=== PATIENT | male | born 1995 | race Caucasian/White ===

== ENCOUNTER 2017-01-23 18:23 | Emergency (ER) | payer SELFPAY ==
[2017-01-23 19:49] LABS: Basophils % (Auto) 0.2 % (0.0-1.8); Hematocrit 43.1 % (35.5-45.6); Hemoglobin 14.4 gm/dl (11.8-15.2); Mean Corpuscular HGB Conc 34 % (32-34); Mean Corpuscular Hemoglobin 30 pg (28-32); Mean Corpuscular Volume 89 fl (84-94); Platelet Count 276 K/mm3 (140-440); Red Blood Count 4.87 M/mm3 (3.65-5.03); Red Cell Distribution Width 14.3 % (13.2-15.2); White Blood Count 11.8 K/mm3 (4.5-11.0)
[2017-01-23 19:59] LABS: Anion Gap 19 mmol/L; Blood Urea Nitrogen 18 mg/dL (9-20); Carbon Dioxide 27 mmol/L (22-30); Chloride 96.9 mmol/L (98-107); Glucose 111 mg/dL (75-100); Potassium 3.7 mmol/L (3.6-5.0); Sodium 139 mmol/L (137-145)
[2017-01-23 23:11] VITALS: BP 114/65
--- NOTE | 2017-01-23 23:29 | Emergency Department Report ---
Vomiting/Diarrhea - [facility] Stated Complaint: VOMITING Time Seen by Provider: 01/23/17 23:12 Duration: Today Severity: moderate Nausea/Vomiting Severity: Moderate Diarrhea Severity: None Pain Location: Epigastric Pain Severity: Moderate Symptoms: No Recent Unusual Foods, No Recent Untreated Water, No Recent use of Antibiotics Other History: 21-year-old male comes in for complaint of nausea and vomiting that started about 7 AM this morning. Patient reports that he is probably vomited about 20 times. He still complains of nausea and diffuse abdominal pains. He reports he had last night for dinner was spicy [place]. He also complains of a headache. ED Review of Systems ROS: Stated complaint: VOMITING Other details as noted in HPI ED Past Medical Hx - Past Medical History Previous Medical History?: No - Surgical History Past Surgical History?: No - Social History Smoking Status: Never Smoker Substance Use Type: Other - Medications Home Medications: Home Medications Medication Instructions Recorded Confirmed Last Taken Type Ondansetron [Zofran ODT TAB] 4 mg PO Q8HR PRN #6 tab.rapdis 01/24/17 Unknown Rx Vomiting Diarrhea Exam - Exam General: Vital signs noted. No distress. Alert and acting appropriately. Neurologic: Alert and oriented, no deficits. Musculoskeletal: Unremarkable. ED Course Vital Signs 01/23/17 01/23/17 18:59 22:27 Temperature 98.1 F 98.5 F Pulse Rate 110 H 78 Respiratory 18 16 Rate Blood Pressure 121/70 Blood Pressure 114/65 [Right] O2 Sat by Pulse 97 97 Oximetry - Reevaluation(s) Reevaluation #1: 01/24/17 01:59 Patient reports he is able to drink without vomiting and stomach pain has improved and no longer nauseated. ED Medical Decision Making - Lab Data Result diagrams: 01/23/17 19:26 01/23/17 19:26 - Medical Decision Making Patient has been evaluated by this provider fast track. Discussed with patient that we will give him Zofran and start a by mouth trial. We would discharge patient with instructions on on a [place] diet. Verbalized understanding Critical care attestation.: If time is entered above; I have spent that time in minutes in the direct care of this critically ill patient, excluding procedure time. ED Disposition Clinical Impression: Nausea & vomiting Qualifiers: Vomiting type: unspecified Vomiting Intractability: unspecified Qualified Code( s): R11.2 - Nausea with vomiting, unspecified Disposition: DISCHARGED TO HOME OR SELFCARE Is pt being admited?: No Does the pt Need Aspirin: No Condition: Stable Instructions: Acute Nausea and Vomiting (ED) Additional Instructions: Please follow up with your doctor. Prescriptions: Ondansetron [Zofran ODT TAB] 4 mg PO Q8HR PRN #6 tab.rapdis PRN Reason: Nausea And Vomiting Referrals: PRIMARY CARE,MD [Primary Care Provider] - 3-5 Days Forms: Accompanied Note, Work/School Release Form(ED) Print Language: NAURUAN
[2017-01-23] MEDS ORDERED: ZOFRAN ODT PO ONE (23:44)
[2017-01-23] MEDS ORDERED: MOTRIN PO ONE (23:49)
[2017-01-24 01:05] LABS: Bilirubin,Urine NEG (Negative); Blood,Urine SM (Negative); Ketones,Urine 20 mg/dL (Negative); Leukocyte Esterase,Urine NEG (Negative); Mucus,Urine FEW /HPF; Nitrite,Urine NEG (Negative); Protein,Urine <15 mg/dL mg/dL (Negative); Urobilinogen,Urine < 2.0 mg/dL (<2.0)
== END 2017-01-24 02:24 | disposition home or self-care (01) ==
LOC: ED 18:23
DX: R11.2 Nausea with vomiting, unspecified (principal)
CPT/HCPCS: 36415; 80048; 81001; 82962; 85025; Q0162